=== PATIENT | female | born 1970 ===

== ENCOUNTER 2017-05-20 20:05 | Emergency (ER) | payer OTHER ==
[2017-05-20 20:05] VITALS: PULSE 73
[2017-05-20 20:28] VITALS: BP 130/78; PULSE 91; RESP 16; TEMP 98.4; O2SAT 98
--- NOTE | 2017-05-20 20:54 | C.PDOC ---
History Of Present Illness Patient is a 47 year old female presents to ED with complaints of neck pain since this morning. Patient reports pain is in her right side of neck, shoulder and upper back. 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 Today she went to gym and did some weights and exercises and pain worsened. She did not take any pain medicine, was not sure what she can take. Denies headache, dizziness, numbness or weakness. Time Seen by Provider: 05/20/17 20:33 Chief Complaint (Nursing): ENT Problem History Per: Patient History/Exam Limitations: no limitations Onset/Duration Of Symptoms: Hrs Current Symptoms Are (Timing): Still Present Recent travel outside of the [place]: No Additional History Per: Patient Past Medical History Reviewed: Historical Data, Nursing Documentation, Vital Signs Vital Signs: Last Vital Signs Temp 98.4 F 05/20/17 20:20 Pulse 91 H 05/20/17 20:20 Resp 16 05/20/17 20:20 BP 130/78 05/20/17 20:20 Pulse Ox 98 05/20/17 22:21 - Medical History PMH: Anemia, Atrial Fibrillation, Cardia Arrhythmia, CHF, HTN, Hypothyroidism, Malignancy (thyroid), Mitral Valve Prolapse Surgical History: Other Surgeries: Thyroidectomy, mitral valve replacement - [facility] Procedures PACKED CELL TRANSFUSION (06/28/15) THORACENTESIS (01/07/15) Family History: States: Unknown Family Hx - Social History Hx Tobacco Use: No Hx Alcohol Use: No Hx Substance Use: No - Immunization History Hx Tetanus Toxoid Vaccination: No Hx Influenza Vaccination: Yes Hx Pneumococcal Vaccination: Yes Review Of Systems Except As Marked, All Systems Reviewed And Found Negative. Constitutional: Negative for: Fever, Chills Musculoskeletal: Positive for: Neck Pain, Shoulder Pain (right), Back Pain ( upper) Neurological: Negative for: Weakness, Numbness, Headache, Dizziness Physical Exam - Physical Exam Appears: Non-toxic, No Acute Distress Skin: Normal Color, Warm, Dry Head: Atraumatic, Normacephalic Eye(s): bilateral: Normal Inspection Nose: Normal Oral Mucosa: Moist Neck: Normal ROM, No Midline Cervical Tenderness, Paracervical Tenderness ( right paracervical muscle tenderness), Supple Chest: Symmetrical Cardiovascular: Rhythm Regular Respiratory: Normal Breath Sounds, No Wheezing Back: No Vertebral Tenderness, Muscle Spasm (right trapezius muscle ), Paraspinal Tenderness (right trapezius muscle tender to palpation ) Extremity: Normal ROM, No Tenderness, No Deformity, No Swelling Neurological/Psych: Oriented x3, Normal Speech, Normal Motor, Normal Sensation Gait: Steady ED Course And Treatment O2 Sat by Pulse Oximetry: 98 Medical Decision Making Medical Decision Makin y.o female with upper back, neck and shoulder pain after strenuous work and exercise. Exam shows muscle tenderness. Flexeril PO given with moderate relief. Disposition Counseled Patient/Family Regarding: Need For Followup, Rx Given - Disposition Referrals: Catherine Grove MD [Staff Provider] - Disposition: HOME/ ROUTINE Disposition Time: 21:14 Condition: STABLE Additional Instructions: Vaya a aguila mdico o la clnica en 2-5 castillo sin falta, para mas evaluacin. [place] los medicamentos rose indicado. Volver a la sonia de emergencia en cualquier momento si los sntomas persisten o empeoran. Prescriptions: Cyclobenzaprine [Cyclobenzaprine HCl] 10 mg PO TID #21 tab Instructions: Cervical Strain (DC) Print Language: PERSIAN - POA Present On Arrival: None - Clinical Impression Clinical Impression: Neck muscle strain - PA / ACCOUNT RESOLUTION SPECIALIST / Resident Statement MD/DO has reviewed & agrees with the documentation as recorded. - Scribe Statement The provider has reviewed the documentation as recorded by the Cindiibemanuel Villegas All medical record entries made by the Scribe were at my direction and personally dictated by me. I have reviewed the chart and agree that the record accurately reflects my personal performance of the history, physical exam, medical decision making, and the department course for this patient. I have also personally directed, reviewed, and agree with the discharge instructions and disposition.
== END 2017-05-20 21:15 | disposition home or self-care (01) ==
LOC: C.ER 20:05
DX: S16.1XXA Strain of muscle, fascia and tendon at neck level, initial encounter (principal); X58.XXXA Exposure to other specified factors, initial encounter; Y93.B3 Activity, free weights; Y92.39 Other specified sports and athletic area as the place of occurrence of the external cause

== ENCOUNTER 2017-09-25 13:15 | Emergency (ER) | payer OTHER ==
[2017-09-25 13:15] VITALS: PULSE 73; BMI 35.1
[2017-09-25 13:30] VITALS: TEMP 97.5
[2017-09-25] MEDS ORDERED: DiphenhydrAMINE 50 mg/ml Inj ONE (13:38)
[2017-09-25] MEDS ORDERED: Lactated Ringer's 1,000 ML ONE (13:39)
--- NOTE | 2017-09-25 13:39 | C.PDOC ---
History Of Present Illness 47F c/o diffuse rash, itching, swelling in her arms and hands, and mild sob that started about an hour ago, shortly after eating fish at a restaurant. she has no known allergies and has not experienced a similar reaction before. hx "high blood sugar" and also a "metal valve" replacement 2.5 years ago. Time Seen by Provider: 09/25/17 13:38 Chief Complaint (Nursing): Allergic Reaction Past Medical History Vital Signs: Last Vital Signs Temp 97.5 F L 09/25/17 13:26 Pulse 130 H 09/25/17 13:26 Resp 20 09/25/17 13:26 BP 124/78 09/25/17 13:26 Pulse Ox 97 09/25/17 14:49 - Medical History PMH: Anemia, Atrial Fibrillation, Cardia Arrhythmia, CHF, HTN, Hypothyroidism, Malignancy (thyroid), Mitral Valve Prolapse Denies: Sexually Transmitted Disease Surgical History: - [facility] Procedures PACKED CELL TRANSFUSION (06/28/15) THORACENTESIS (01/07/15) Family History: States: Other Other Family History: nc - Social History Hx Tobacco Use: No Hx Alcohol Use: No Hx Substance Use: No - Immunization History Hx Tetanus Toxoid Vaccination: No Hx Influenza Vaccination: Yes Hx Pneumococcal Vaccination: Yes Review Of Systems Constitutional: Negative for: Fever Cardiovascular: Negative for: Chest Pain Respiratory: Positive for: Shortness of Breath. Negative for: Cough, Hemoptysis , Wheezing Gastrointestinal: Negative for: Nausea, Vomiting, Abdominal Pain Skin: Positive for: Rash Neurological: Negative for: Headache Physical Exam - Physical Exam Skin: Warm, Dry, Rash (diffuse urticaria mainly on back and arms) Head: Atraumatic Eye(s): bilateral: PERRL, EOMI Nose: No Epistaxis Oral Mucosa: Moist Tongue: No Swelling, No Erythema Lips: No Swelling Gingiva: No Swelling Throat: No Erythema, No Drooling, Other (uvula non-edematous and midline) Neck: Normal ROM Cardiovascular: Rhythm Regular Respiratory: No Decreased Breath Sounds, No Accessory Muscle Use, No Rales, No Rhonchi, No Stridor, No Wheezing Neurological/Psych: Oriented x3, Other (no focal deficits) ED Course And Treatment - Laboratory Results Result Diagrams: 09/25/17 14:25 09/25/17 14:25 O2 Sat by Pulse Oximetry: 97 Medical Decision Making Medical Decision Making: ecg- nsr 89, incomplete rbbb, no acute ischemia 1600 pt resting comfortably, reports sob completely resolved. she appears well, no distress. hives improved as well. follow up and return prec advised. Disposition - Disposition Disposition: HOME/ ROUTINE Disposition Time: 16:06 Condition: IMPROVED Forms: [facility] (Kiswahili) - Clinical Impression Clinical Impression: Scombroid fish poisoning
[2017-09-25] MEDS ORDERED: Lactated Ringer's 1,000 ML IV ONE (13:45)
[2017-09-25] MEDS ORDERED: DiphenhydrAMINE 50 mg/ml Inj IVP STA (13:45)
[2017-09-25 14:29] LABS: BASO % 0.4 % (0.0-2.0); EOS # 0.1 K/uL (0.0-0.7); EOS % 0.5 % (0.0-4.0); HEMATOCRIT 55.6 % (34.0-47.0); LYMPH # 4.9 K/uL (1.0-4.3); LYMPH % 42.7 % (20.0-40.0); MEAN PLATELET VOLUME 10.7 fL (7.2-11.7); MONO # 1.3 K/uL (0.0-0.8); MONO % 11.5 % (0.0-10.0); NRBC % 0.3 % (0.0-2.0); WHITE BLOOD COUNT 11.6 K/uL (4.8-10.8)
[2017-09-25 14:36] LABS: INR 3.9
[2017-09-25 14:49] LABS: ALB/GLOB RATIO 1.3 (1.0-2.1); ALKALINE PHOSPHATASE 107 U/L (38-126); ALT/SGPT 167 U/L (9-52); AST/SGOT 93 U/L (14-36); BILIRUBIN,TOTAL 1.4 mg/dL (0.2-1.3); BLOOD UREA NITROGEN 13 mg/dL (7-17); CALCIUM 8.7 mg/dl (8.6-10.4); CARBON DIOXIDE 18 mmol/L (22-30); CHLORIDE 103 mmol/L (98-107); GFR AFRICAN-AMERICAN > 60; GLUCOSE,RANDOM 102 mg/dL (65-105); POTASSIUM 3.7 mmol/L (3.6-5.2); SODIUM 138 mmol/L (132-148)
[2017-09-25 16:33] VITALS: BP 129/85; PULSE 82; RESP 16; O2SAT 98
--- NOTE | 2017-09-28 12:07 | CARD ---
APPROVED REPORT EKG Measurement Heart [id number] <Conclusion> Normal sinus rhythm Possible Left atrial enlargement right bundle branch block Prolonged QT Abnormal ECG
== END 2017-09-25 16:32 | disposition home or self-care (01) ==
LOC: C.ER 13:15
DX: T61.11XA Scombroid fish poisoning, accidental (unintentional), initial encounter (principal); X58.XXXA Exposure to other specified factors, initial encounter; Y92.511 Restaurant or cafe as the place of occurrence of the external cause; I10 Essential (primary) hypertension; I48.91 Unspecified atrial fibrillation
CPT/HCPCS: 80053; 85025; 85610; 96361; 96374; 96375; 99285; J1200; J2930; J7120

== ENCOUNTER 2018-03-19 20:06 | Observation (INO) | payer MEDICAID ==
[2018-03-19 20:06] VITALS: PULSE 73; BMI 35.3
--- NOTE | 2018-03-19 20:42 | C.PDOC ---
History Of Present Illness 47 year old female with a Hx of HTN, diabetes, and valvular heart disease s/p surgery on Coumadin presents to the ER with left chest pain for the past few days. Patient reports the pain as a burning sensation. Patient has never had a stress test done before in the past. Denies fever. Time Seen by Provider: 03/19/18 20:33 Chief Complaint (Nursing): Chest Pain History Per: Patient History/Exam Limitations: no limitations Onset/Duration Of Symptoms: Days Current Symptoms Are (Timing): Still Present Quality: Burning Associated Symptoms: denies: Nausea, Dyspnea, Diaphoresis, Syncope Modifying Factors: None Exacerbating Factors: None Alleviating Factors: None Recent travel outside of the [place]: No Past Medical History Reviewed: Historical Data, Nursing Documentation, Vital Signs Vital Signs: Last Vital Signs Temp 97.9 F 03/20/18 07:40 Pulse 66 03/20/18 07:40 Resp 18 03/20/18 07:40 BP 116/62 03/20/18 07:40 Pulse Ox 97 03/20/18 07:40 - Medical History PMH: Anemia, Atrial Fibrillation, Cardia Arrhythmia, CHF, HTN, Hypothyroidism, Malignancy (thyroid), Mitral Valve Prolapse Surgical History: - [facility] Procedures PACKED CELL TRANSFUSION (06/28/15) THORACENTESIS (01/07/15) Family History: States: Unknown Family Hx - Social History Hx Tobacco Use: No Hx Alcohol Use: No Hx Substance Use: No - Immunization History Hx Tetanus Toxoid Vaccination: No Hx Influenza Vaccination: Yes Hx Pneumococcal Vaccination: Yes Review Of Systems Except As Marked, All Systems Reviewed And Found Negative. Constitutional: Negative for: Fever Cardiovascular: Positive for: Chest Pain Respiratory: Negative for: Cough, Shortness of Breath Gastrointestinal: Negative for: Nausea, Vomiting Physical Exam - Physical Exam Appears: Non-toxic Skin: Normal Color, Warm, Dry Head: Atraumatic, Normacephalic Eye(s): bilateral: Normal Inspection Oral Mucosa: Moist Chest: Symmetrical, No Tenderness Cardiovascular: Rhythm Regular Respiratory: Normal Breath Sounds, No Rales, No Rhonchi, No Wheezing Gastrointestinal/Abdominal: Soft, No Tenderness Neurological/Psych: Oriented x3, Normal Speech ED Course And Treatment - Laboratory Results Result Diagrams: 03/19/18 20:39 03/19/18 20:39 ECG: Interpreted By Me, Viewed By Me ECG Rhythm: Sinus Rhythm, R BBB Interpretation Of ECG: No interval change from previous. Rate From EC O2 Sat by Pulse Oximetry: 99 (Room air) Pulse Ox Interpretation: Normal Medical Decision Making Medical Decision Making: Plan: * Blood work * CXR * Aspirin atypical pain, but onsent less than 1 hour. needs serial trop Disposition - Disposition Disposition: HOSPITALIZED Disposition Time: 12:00 Condition: STABLE - Clinical Impression Clinical Impression: Chest pain - Scribe Statement The provider has reviewed the documentation as recorded by the Scribe Raz Machuca All medical record entries made by the Scribe were at my direction and personally dictated by me. I have reviewed the chart and agree that the record accurately reflects my personal performance of the history, physical exam, medical decision making, and the department course for this patient. I have also personally directed, reviewed, and agree with the discharge instructions and disposition. Decision To Admit - Pt Status Changed To: Hospital Disposition Of: Observation - . Bed Request Type: Telemetry Admitting Physician: Luis Fernando Chambers Patient Diagnosis: Chest pain
[2018-03-19 20:43] LABS: BASO # 0.1 K/uL (0.0-0.2); BASO % 1.2 % (0.0-2.0); EOS # 0.2 K/uL (0.0-0.7); EOS % 2.3 % (0.0-4.0); HEMOGLOBIN 14.7 g/dL (11.0-16.0); LYMPH # 4.1 K/uL (1.0-4.3); LYMPH % 46.4 % (20.0-40.0); MEAN CELL VOLUME 89.1 fL (81.0-99.0); MEAN CORPUSCULAR HEMOGLOBIN 30.2 pg (27.0-31.0); MEAN CORPUSCULAR HGB CONC 33.9 g/dL (33.0-37.0); MEAN PLATELET VOLUME 9.8 fL (7.2-11.7); MONO # 0.6 K/uL (0.0-0.8); MONO % 7.3 % (0.0-10.0); NEUT # 3.7 K/uL (1.8-7.0); NEUT % 42.8 % (50.0-75.0); NRBC % 0.1 % (0.0-2.0); RBC 4.87 Mil/uL (3.80-5.20); RED CELL DISTRIBUTION WIDTH 13.8 % (11.5-14.5); WHITE BLOOD COUNT 8.8 K/uL (4.8-10.8)
[2018-03-19 20:50] LABS: INR 2.7; PROTHROMBIN TIME 29.6 SECONDS (9.7-12.2)
[2018-03-19 21:03] LABS: ALB/GLOB RATIO 1.1 (1.0-2.1); ALBUMIN 4.4 g/dL (3.5-5.0); ALT/SGPT 100 U/L (9-52); AST/SGOT 57 U/L (14-36); BLOOD UREA NITROGEN 20 mg/dL (7-17); GFR AFRICAN-AMERICAN > 60; GFR NON-AFRICAN AMERICAN > 60
[2018-03-19 21:05] LABS: CK-MB 1.02 ng/mL (0.0-3.38)
[2018-03-19 21:29] LABS: SQUAMOUS EPITHIAL 2 /hpf (0-5); URINE BACTERIA OCC (<OCC); URINE BILIRUBIN NEGATIVE (NEGATIVE); URINE BLOOD NEGATIVE (NEGATIVE); URINE CLARITY Clear (Clear); URINE COLOR Yellow (YELLOW); URINE GLUCOSE (UA) NORMAL (Normal); URINE LEUKOCYTE ESTERASE NEG Leu/uL (Negative); URINE PROTEIN NEGATIVE (NEGATIVE); URINE UROBILINOGEN NORMAL mg/dL (0.2-1.0)
[2018-03-19 21:30] LABS: HCG,QUALITATIVE URINE NEGATIVE (NEGATIVE)
--- NOTE | 2018-03-19 22:05 | CP.PCM.HP ---
<Meena Mensah - Last Filed: 03/19/18 23:15> History of Present Illness - History of Present Illness History of Present Illness: CC: chest pain for two days HPI: 47 year old female with a PMH: HTN, diabetes, and valvular heart disease s/p valvular replacement surgery (mitral and tricuspid) on Coumadin presents to the ER with left chest pain for the past two days. Patient states the pain is on and off and last for minutes usually but the duration is never the same. Patient has never had a stress test done before in the past. Patient states this is the first time she's experienced this pain before. The previous pain she had experienced led her to have valve replacement. Patient states this is different. Patient states she was given aspirin in ED and per EMR. Patient states she still has a little chest pain now but feels better. Patient denies shortness of breath, fever, chills, coughing, dizziness, nausea, vomiting, diarrhea, constipation, numbness, and tingling of lower extremities. PMH: cholesterol, liver problem (unspecified. follows at [facility]) surgery: thyroidectomy, , valve replacement x 2 (mitral and tricuspid "metal" valves) Social: no smoking, drinking etoh, illicit drugs PMD: [facility] allergies: fish Present on Admission - Present on Admission Any Indicators Present on Admission: No History of DVT/PE: No History of Uncontrolled Diabetes: No Urinary Catheter: No Decubitus Ulcer Present: No Review of Systems - Review of Systems All systems: reviewed and no additional remarkable complaints except - Cardiovascular Cardiovascular: absent: Chest Pain at Rest, Irregular Heart Rhythm, Palpitations , Pedal Edema - Respiratory Respiratory: absent: Cough, Dyspnea, Hemoptysis, Dyspnea on Exertion, Chest Congestion, Change in Mucous Color Past Patient History - Infectious Disease Hx of Infectious Diseases: None - Past Medical History & Family History Past Medical History?: Yes - Past Social History Smoking Status: Never Smoked Alcohol: None Home Situation {Lives}: With Family - CARDIAC Hx Atrial Fibrillation: Yes Hx Cardia Arrhythmia: Yes Hx Congestive Heart Failure: Yes Hx Hypertension: Yes Hx Mitral Valve Prolapse: Yes - PULMONARY Hx Respiratory Disorders: No - NEUROLOGICAL Hx Neurological Disorder: No - HEENT Hx HEENT Problems: No - RENAL Hx Chronic Kidney Disease: No - ENDOCRINE/METABOLIC Hx Hypothyroidism: Yes - HEMATOLOGICAL/ONCOLOGICAL Hx Anemia: Yes - INTEGUMENTARY Hx Dermatological Problems: No - MUSCULOSKELETAL/RHEUMATOLOGICAL Hx Musculoskeletal Disorders: No Hx Falls: No - GASTROINTESTINAL Hx Gastrointestinal Disorders: No - GENITOURINARY/GYNECOLOGICAL Hx Sexually Transmitted Disorders: No - PSYCHIATRIC Hx Substance Use: No - SURGICAL HISTORY Hx Surgeries: Yes Hx Section: Yes (x1) Hx Open Heart Surgery: Yes Hx Thyroidectomy: Yes (" 1/2 was removed") Hx Valve Replacement: Yes (mitral valve) Other/Comment: thoracentesis 01/07/15 - ANESTHESIA Hx Anesthesia: Yes Hx Anesthesia Reactions: No Hx Malignant Hyperthermia: No Meds Allergies/Adverse Reactions: Allergies Allergy/AdvReac Type Severity Reaction Status Date / Time FISH Allergy Verified 09/28/17 08:42 Physical Exam - Constitutional Appears: Non-toxic, No Acute Distress - Head Exam Head Exam: ATRAUMATIC, NORMAL INSPECTION, NORMOCEPHALIC - Eye Exam Eye Exam: EOMI, Normal appearance Pupil Exam: NORMAL ACCOMODATION - ENT Exam ENT Exam: Mucous Membranes Moist - Neck Exam Neck exam: Positive for: Full Rom. Negative for: Lymphadenopathy - Respiratory Exam Respiratory Exam: Clear to Auscultation Bilateral, NORMAL BREATHING PATTERN. absent: Accessory Muscle Use, Chest Wall Tenderness, Decreased Breath Sounds - Cardiovascular Exam Cardiovascular Exam: REGULAR RHYTHM, +S1, +S2. absent: Bradycardia, Tachycardia - GI/Abdominal Exam GI & Abdominal Exam: Normal Bowel Sounds, Soft. absent: Tenderness - Extremities Exam Extremities exam: Positive for: full ROM, normal inspection. Negative for: pedal edema - Neurological Exam Neurological exam: Alert, CN II-XII Intact, Oriented x3 - Skin Skin Exam: Dry, Intact, Normal Color, Warm Results - Vital Signs Recent Vital Signs: Last Vital Signs Temp 98.2 F 03/19/18 20:31 Pulse 78 03/19/18 20:31 Resp 16 03/19/18 20:31 BP 131/68 03/19/18 20:31 Pulse Ox 99 03/19/18 20:45 - Labs Result Diagrams: 03/19/18 20:39 03/19/18 20:39 Labs: Laboratory Results - last 24 hr 03/19/18 03/19/18 03/19/18 20:39 20:39 20:39 WBC 8.8 D RBC 4.87 Hgb 14.7 Hct 43.3 MCV 89.1 MCH 30.2 MCHC 33.9 RDW 13.8 Plt Count 246 MPV 9.8 Neut % (Auto) 42.8 L Lymph % (Auto) 46.4 H [place] % (Auto) 7.3 Eos % (Auto) 2.3 Baso % (Auto) 1.2 Neut # (Auto) 3.7 Lymph # (Auto) 4.1 [place] # (Auto) 0.6 Eos # (Auto) 0.2 Baso # (Auto) 0.1 PT 29.6 H* INR 2.7 APTT 53 H Sodium 143 Potassium 4.7 Chloride 104 Carbon Dioxide 28 Anion Gap 15 BUN 20 H Creatinine 0.7 Est GFR ( Amer) > 60 Est GFR (Non-Af Amer) > 60 Random Glucose 98 Calcium 10.0 Total Bilirubin 1.4 H AST 57 H ALT 100 H D Alkaline Phosphatase 119 Total Creatine Kinase 115 CK-MB (Mass) 1.02 Troponin I < 0.0120 Total Protein 8.3 Albumin 4.4 Globulin 3.9 Albumin/Globulin Ratio 1.1 Urine Color Urine Clarity Urine pH Ur Specific [place] Urine Protein Urine Glucose (UA) Urine Ketones Urine Blood Urine Nitrate Urine Bilirubin Urine Urobilinogen Ur Leukocyte Esterase Urine WBC (Auto) Urine RBC (Auto) Ur Squamous Epith Cells Ur Transition Epith Cell Urine Bacteria Urine HCG, Qual 03/19/18 21:21 WBC RBC Hgb Hct MCV MCH MCHC RDW Plt Count MPV Neut % (Auto) Lymph % (Auto) [place] % (Auto) Eos % (Auto) Baso % (Auto) Neut # (Auto) Lymph # (Auto) [place] # (Auto) Eos # (Auto) Baso # (Auto) PT INR APTT Sodium Potassium Chloride Carbon Dioxide Anion Gap BUN Creatinine Est GFR ( Amer) Est GFR (Non-Af Amer) Random Glucose Calcium Total Bilirubin AST ALT Alkaline Phosphatase Total Creatine Kinase CK-MB (Mass) Troponin I Total Protein Albumin Globulin Albumin/Globulin Ratio Urine Color Yellow Urine Clarity Clear Urine pH 5.0 Ur Specific [place] 1.020 Urine Protein Negative Urine Glucose (UA) Normal Urine Ketones Negative Urine Blood Negative Urine Nitrate Negative Urine Bilirubin Negative Urine Urobilinogen Normal Ur Leukocyte Esterase Neg Urine WBC (Auto) 2 Urine RBC (Auto) 1 Ur Squamous Epith Cells 2 Ur Transition Epith Cell < 1 Urine Bacteria Occ H Urine HCG, Qual Negative Assessment & Plan - Assessment and Plan (Free Text) Assessment: ACS r/o EKG RBBB troponin negative x 1 f/u TRISTIAN x 2 ASA 81 mg POQD hx HTN Zestril 5mgPOQD valvular disease s/p mitral and tricuspid replacement f/u INR: 2.7, therapeutic on Coumadin 7mg po qd at home 1800 Impaired glucose tolerance last hgb A1c 6.1% sliding scale accucheck q6h Transamnitis 57/100 t bili 1.4 f/u Abdominal US (already done from clinic order) Patient said she had it done Prophylaxis Pepcid 20mg PO QD SCD discussed with Dr. Trish Mensah DO PGY1 - Date & Time Date: 03/19/18 Time: 22:13 <Luis Fernando Chambers - Last Filed: 03/20/18 06:27> Results - Vital Signs Recent Vital Signs: Last Vital Signs Temp 97.7 F 03/20/18 04:40 Pulse 60 03/20/18 04:40 Resp 20 03/20/18 04:40 BP 95/59 L 03/20/18 04:40 Pulse Ox 96 03/20/18 04:40 - Labs Result Diagrams: 03/19/18 20:39 03/19/18 20:39 Labs: Laboratory Results - last 24 hr 03/19/18 03/19/18 03/19/18 20:39 20:39 20:39 WBC 8.8 D RBC 4.87 Hgb 14.7 Hct 43.3 MCV 89.1 MCH 30.2 MCHC 33.9 RDW 13.8 Plt Count 246 MPV 9.8 Neut % (Auto) 42.8 L Lymph % (Auto) 46.4 H [place] % (Auto) 7.3 Eos % (Auto) 2.3 Baso % (Auto) 1.2 Neut # (Auto) 3.7 Lymph # (Auto) 4.1 [place] # (Auto) 0.6 Eos # (Auto) 0.2 Baso # (Auto) 0.1 PT 29.6 H* INR 2.7 APTT 53 H Sodium 143 Potassium 4.7 Chloride 104 Carbon Dioxide 28 Anion Gap 15 BUN 20 H Creatinine 0.7 Est GFR ( Amer) > 60 Est GFR (Non-Af Amer) > 60 Random Glucose 98 Calcium 10.0 Total Bilirubin 1.4 H AST 57 H ALT 100 H D Alkaline Phosphatase 119 Total Creatine Kinase 115 CK-MB (Mass) 1.02 Troponin I < 0.0120 Total Protein 8.3 Albumin 4.4 Globulin 3.9 Albumin/Globulin Ratio 1.1 Urine Color Urine Clarity Urine pH Ur Specific [place] Urine Protein Urine Glucose (UA) Urine Ketones Urine Blood Urine Nitrate Urine Bilirubin Urine Urobilinogen Ur Leukocyte Esterase Urine WBC (Auto) Urine RBC (Auto) Ur Squamous Epith Cells Ur Transition Epith Cell Urine Bacteria Urine HCG, Qual 03/19/18 03/20/18 21:21 00:28 WBC RBC Hgb Hct MCV MCH MCHC RDW Plt Count MPV Neut % (Auto) Lymph % (Auto) [place] % (Auto) Eos % (Auto) Baso % (Auto) Neut # (Auto) Lymph # (Auto) [place] # (Auto) Eos # (Auto) Baso # (Auto) PT INR APTT Sodium Potassium Chloride Carbon Dioxide Anion Gap BUN Creatinine Est GFR ( Amer) Est GFR (Non-Af Amer) Random Glucose Calcium Total Bilirubin AST ALT Alkaline Phosphatase Total Creatine Kinase 112 CK-MB (Mass) 1.01 Troponin I < 0.0120 Total Protein Albumin Globulin Albumin/Globulin Ratio Urine Color Yellow Urine Clarity Clear Urine pH 5.0 Ur Specific [place] 1.020 Urine Protein Negative Urine Glucose (UA) Normal Urine Ketones Negative Urine Blood Negative Urine Nitrate Negative Urine Bilirubin Negative Urine Urobilinogen Normal Ur Leukocyte Esterase Neg Urine WBC (Auto) 2 Urine RBC (Auto) 1 Ur Squamous Epith Cells 2 Ur Transition Epith Cell < 1 Urine Bacteria Occ H Urine HCG, Qual Negative Assessment & Plan - Date & Time Date: 03/20/18 (I have seen and examined the patient. I agree with the findings and plan of care as documented by Dr. Mensah. Patient with chest pain. Aspirin and Statin. ROMIx3 with EKG. 2D Echo. History of valvular heart disease. Continue coumadin. INR within therapeutic range. Also with impaired glucose tolerance. NISS and accuchecks. Monitor for acute changes.) Time: 06:26 Attending/Attestation - Attestation I have personally seen and examined this patient.: Yes I have fully participated in the care of the patient.: Yes I have reviewed all pertinent clinical information: Yes
[2018-03-19] MEDS ORDERED: Glucagon Recombinant 1 mg Inj IM PRN (23:16)
[2018-03-19] MEDS ORDERED: Dextrose 50% SYRINGE Inj (50 ml) IV PRN (23:16)
[2018-03-20 01:05] LABS: CK-MB 1.01 ng/mL (0.0-3.38)
[2018-03-20 06:58] LABS: INR 2.8
[2018-03-20 07:06] LABS: PROTHROMBIN TIME 31.2 SECONDS (9.7-12.2)
[2018-03-20 07:21] LABS: CK-MB 0.85 ng/mL (0.0-3.38)
[2018-03-20] MEDS: (Novolin R) Insulin Human Regular 100 units/ml vial SC SCH ×2 (08:00→14:00)
--- NOTE | 2018-03-20 09:16 | RAD ---
HISTORY: CHEST PAIN COMPARISON: Portable chest 01/16/2016. FINDINGS: LUNGS: No active pulmonary disease. PLEURA: No significant pleural effusion identified, no pneumothorax apparent. CARDIOVASCULAR: Sternotomy wires again appreciate as well as prosthetic cardiac valve. No pulmonary vascular derangement appreciable. OSSEOUS STRUCTURES: No significant abnormalities. VISUALIZED UPPER ABDOMEN: Normal. OTHER FINDINGS: None. IMPRESSION: No interval acute cardiopulmonary disease appreciated. Prosthetic cardiac valve again evident.
[2018-03-20 09:29] VITALS: BP 116/62; PULSE 66; RESP 18; TEMP 97.9
--- NOTE | 2018-03-20 14:41 | CARD ---
APPROVED REPORT EXAM: Two-dimensional and M-mode echocardiogram with Doppler and color Doppler. Other Information Quality : GoodRhythm : INDICATION Dyspnea Atrial Fibrillation Chest Pain RISK FACTORS Hypertension 2D DIMENSIONS IVSd1.2 (0.7-1.1cm)LVDd3.5 (3.9-5.9cm) PWd1.2 (0.7-1.1cm)LVDs2.3 (2.5-4.0cm) FS (%) 34.2 %LVEF (%)64.2 (>50%) M-Mode DIMENSIONS Left Atrium (MM)4.82 (2.5-4.0cm)Aortic Root2.92 (2.2-3.7cm) Aortic Cusp Exc.1.90 (1.5-2.0cm) Aortic Valve AI P 1/2 [id number] Mitral Valve MV E Yylbxvpv536.4cm/sMV E Peak Gr.7mmHgMV A Cyaboost225.3cm/s MV E Mean Gr.4mmHgMV [id number]/A ratio1.1 MVA (PHT)1.88cm2 TDI E/Lateral E'0.0E/Medial E'0.0 Tricuspid Valve TR Peak Ntazoiav131ya/sTR Peak Gr.89rcJdZOPW56mpZe LEFT VENTRICLE The left ventricle is normal size. There is normal left ventricular wall thickness. The left ventricular function is normal. The left ventricular ejection fraction is within the normal range. No regional wall motion abnormalities noted. No left ventricle thrombus noted on this study. There is no ventricular septal defect visualized. There is no left ventricular aneurysm. There is no mass noted in the left ventricle. RIGHT VENTRICLE The right ventricle is normal size. There is normal right ventricular wall thickness. The right ventricular systolic function is normal. ATRIA The left atrium is moderately dilated. The right atrium size is normal. The interatrial septum is intact with no evidence for an atrial septal defect. AORTIC VALVE The aortic valve is normal in structure and function. There is moderate aortic regurgitation. There is no aortic valvular stenosis. There is no aortic valvular vegetation. MITRAL VALVE ? Mitral valve prosthesis. Not well visualized due to heavy calcification of the mitral annulus. There is no evidence of mitral valve prolapse. There is no mitral valve stenosis. There is no mitral valve regurgitation noted. TRICUSPID VALVE The tricuspid valve is normal in structure and function. Mild to moderate tricuspid regurg. Systolic pulmonary pressure is 34 mmHg There is no tricuspid valve prolapse or vegetation. There is no tricuspid valve stenosis. PULMONIC VALVE The pulmonary valve is normal in structure and function. There is no pulmonic valvular regurgitation. There is no pulmonic valvular stenosis. GREAT VESSELS The aortic root is normal in size. The ascending aorta is normal in size. The pulmonary artery is normal. The IVC is normal in size and collapses >50% with inspiration. PERICARDIAL EFFUSION The pericardium appears normal. There is no pleural effusion. <Conclusion> The left ventricular function is normal. The left ventricular ejection fraction is within the normal range. No regional wall motion abnormalities noted. There is moderate aortic regurgitation. ? Mitral valve prosthesis. Not well visualized due to heavy calcification of the mitral annulus. Mild to moderate tricuspid regurg. Systolic pulmonary pressure is 34 mmHg The left atrium is moderately dilated.
--- NOTE | 2018-03-20 14:55 | CP.PCM.DIS ---
Provider - Provider Date of Admission: 03/19/18 21:11 Attending physician: Luis Fernando Chambers MD Consults: None Time Spent in preparation of Discharge (in minutes): 45 Hospital Course - Lab Results Lab Results: Most Recent Lab Values WBC 8.8 K/uL (4.8-10.8) D 03/19/18 20:39 RBC 4.87 Mil/uL (3.80-5.20) 03/19/18 20:39 Hgb 14.7 g/dL (11.0-16.0) 03/19/18 20:39 Hct 43.3 % (34.0-47.0) 03/19/18 20:39 MCV 89.1 fL (81.0-99.0) 03/19/18 20:39 MCH 30.2 pg (27.0-31.0) 03/19/18 20:39 MCHC 33.9 g/dL (33.0-37.0) 03/19/18 20:39 RDW 13.8 % (11.5-14.5) 03/19/18 20:39 Plt Count 246 K/uL (130-400) 03/19/18 20:39 MPV 9.8 fL (7.2-11.7) 03/19/18 20:39 Neut % (Auto) 42.8 % (50.0-75.0) L 03/19/18 20:39 Lymph % (Auto) 46.4 % (20.0-40.0) H 03/19/18 20:39 Bonner % (Auto) 7.3 % (0.0-10.0) 03/19/18 20:39 Eos % (Auto) 2.3 % (0.0-4.0) 03/19/18 20:39 Baso % (Auto) 1.2 % (0.0-2.0) 03/19/18 20:39 Neut # (Auto) 3.7 K/uL (1.8-7.0) 03/19/18 20:39 Lymph # (Auto) 4.1 K/uL (1.0-4.3) 03/19/18 20:39 Bonner # (Auto) 0.6 K/uL (0.0-0.8) 03/19/18 20:39 Eos # (Auto) 0.2 K/uL (0.0-0.7) 03/19/18 20:39 Baso # (Auto) 0.1 K/uL (0.0-0.2) 03/19/18 20:39 PT 31.2 SECONDS (9.7-12.2) H* 03/20/18 06:45 INR 2.8 03/20/18 06:45 APTT 53 SECONDS (21-34) H 03/19/18 20:39 Sodium 143 mmol/L (132-148) 03/19/18 20:39 Potassium 4.7 mmol/L (3.6-5.2) 03/19/18 20:39 Chloride 104 mmol/L (98-107) 03/19/18 20:39 Carbon Dioxide 28 mmol/L (22-30) 03/19/18 20:39 Anion Gap 15 (10-20) 03/19/18 20:39 BUN 20 mg/dL (7-17) H 03/19/18 20:39 Creatinine 0.7 mg/dL (0.7-1.2) 03/19/18 20:39 Est GFR ( Amer) > 60 03/19/18 20:39 Est GFR (Non-Af Amer) > 60 03/19/18 20:39 POC Glucose (mg/dL) 89 mg/dL (65-110) 03/20/18 11:37 Random Glucose 98 mg/dL (65-105) 03/19/18 20:39 Calcium 10.0 mg/dl (8.6-10.4) 03/19/18 20:39 Total Bilirubin 1.4 mg/dL (0.2-1.3) H 03/19/18 20:39 AST 57 U/L (14-36) H 03/19/18 20:39 ALT 100 U/L (9-52) H D 03/19/18 20:39 Alkaline Phosphatase 119 U/L (38-126) 03/19/18 20:39 Total Creatine Kinase 80 U/L (30-135) 03/20/18 06:45 CK-MB (Mass) 0.85 ng/mL (0.0-3.38) 03/20/18 06:45 Troponin I < 0.0120 ng/mL (0.00-0.120) 03/20/18 06:45 Total Protein 8.3 g/dL (6.3-8.3) 03/19/18 20:39 Albumin 4.4 g/dL (3.5-5.0) 03/19/18 20:39 Globulin 3.9 gm/dL (2.2-3.9) 03/19/18 20:39 Albumin/Globulin Ratio 1.1 (1.0-2.1) 03/19/18 20:39 Urine Color Yellow (YELLOW) 03/19/18 21:21 Urine Clarity Clear (Clear) 03/19/18 21:21 Urine pH 5.0 (5.0-8.0) 03/19/18 21:21 Ur Specific [place] 1.020 (1.003-1.030) 03/19/18 21:21 Urine Protein Negative mg/dL (NEGATIVE) 03/19/18 21:21 Urine Glucose (UA) Normal mg/dL (Normal) 03/19/18 21:21 Urine Ketones Negative mg/dL (NEGATIVE) 03/19/18 21:21 Urine Blood Negative (NEGATIVE) 03/19/18 21:21 Urine Nitrate Negative (NEGATIVE) 03/19/18 21:21 Urine Bilirubin Negative (NEGATIVE) 03/19/18 21:21 Urine Urobilinogen Normal mg/dL (0.2-1.0) 03/19/18 21:21 Ur Leukocyte Esterase Neg Moni/uL (Negative) 03/19/18 21:21 Urine WBC (Auto) 2 /hpf (0-5) 03/19/18 21:21 Urine RBC (Auto) 1 /hpf (0-3) 03/19/18 21:21 Ur Squamous Epith Cells 2 /hpf (0-5) 03/19/18 21:21 Ur Transition Epith Cell < 1 /hpf (0-3) 03/19/18 21:21 Urine Bacteria Occ (<OCC) H 03/19/18 21:21 Urine HCG, Qual Negative (NEGATIVE) 03/19/18 21:21 - Hospital Course Hospital Course: Attending: Dr. Salinas Consults: none Stable for dc Complications: none Procedures: none Discharge dx: 1. Chest pain, r/o acs 2. Valvular sx 3. HLD 4. HTN HPI: see h/p Labs: see lab data section Hospital course: 1. Chest pain, ACS rule out -daily asa -trops negative x 3 -EKG Right bundle, unchanged -echo shows normal LV function hx HTN -cont lisinopril hx of valve replacement -continue warfarin 7 mg daily -INR is therapeutic Impaired glucose tolerance -last hgb A1c 6.1% -sliding scale -accucheck q6h Transaminitis -trend labs -monitor for now GI/DVT ppx -SCDS -pepcid Discharge rx: 1. asa 81 daily 2. lisinopril daily 3. warfarin 7 mg daily 4. metformin BID Discharge instructions 1. Please return if condition worsens 2. Please follow up with PMD - Date & Time of H&P Date of H&P: 03/19/18 Time of H&P: 22:02 Discharge Exam - Head Exam Head Exam: ATRAUMATIC, NORMAL INSPECTION, NORMOCEPHALIC - Eye Exam Eye Exam: EOMI - ENT Exam ENT Exam: Mucous Membranes Moist - Neck Exam Neck exam: Full Rom, Normal Inspection - Respiratory Exam Respiratory Exam: NORMAL BREATHING PATTERN, UNREMARKABLE - Cardiovascular Exam Cardiovascular Exam: +S1, +S2 - GI/Abdominal Exam GI & Abdominal Exam: Normal Bowel Sounds - Extremities Exam Extremities exam: full ROM, normal inspection - Neurological Exam Neurological exam: Alert, Oriented x3 - Psychiatric Exam Psychiatric exam: Normal Affect, Normal Mood - Skin Skin Exam: Dry, Intact, Normal Color, Warm Discharge Plan - Follow Up Plan Condition: STABLE Disposition: HOME/ ROUTINE
[2018-03-22 08:46] VITALS: O2SAT 99
--- NOTE | 2018-03-22 12:12 | CARD ---
APPROVED REPORT EKG Measurement Heart [id number] <Conclusion> Normal sinus rhythm Right bundle branch block Abnormal ECG
--- NOTE | 2018-03-22 12:12 | CARD ---
APPROVED REPORT EKG Measurement Heart [id number] <Conclusion> Normal sinus rhythm Right bundle branch block Cannot rule out Inferior infarct, age undetermined Abnormal ECG
== END 2018-03-20 16:00 | disposition home or self-care (01) ==
LOC: C.ER 20:06 → C.9E 21:11 → C.6T 22:25
PROVIDERS: ADMIT Family Medicine; ATTEND Family Medicine
DX: R07.89 Other chest pain (principal); I11.0 Hypertensive heart disease with heart failure; I50.9 Heart failure, unspecified; I48.91 Unspecified atrial fibrillation; I45.10 Unspecified right bundle-branch block; I34.1 Nonrheumatic mitral (valve) prolapse; E89.0 Postprocedural hypothyroidism; E78.5 Hyperlipidemia, unspecified; E11.9 Type 2 diabetes mellitus without complications; Z95.2 Presence of prosthetic heart valve
CPT/HCPCS: 36415; 71045; 80053; 81001; 82948; 84484; 84703; 85025; 85610; 85730; 93306; 99285; G0378

== ENCOUNTER 2018-08-26 20:45 | Emergency (ER) | payer MEDICAID ==
[2018-08-26 20:46] VITALS: PULSE 73; BMI 35.3
[2018-08-26 20:59] VITALS: BP 126/79; PULSE 66; RESP 20; TEMP 97.6; O2SAT 98
[2018-08-26 21:41] LABS: PROTHROMBIN TIME 59.4 SECONDS (9.7-12.2)
--- NOTE | 2018-08-26 21:52 | C.PDOC ---
History Of Present Illness 48 y/o female presents to the ER complaining of discoloration to the dorsum and volar surface of right wrist. Patient states that she has been taking Coumadin alternating between 6 mg and 7 mg s/p cardiac valve replacement. Denies having direct trauma, falls, and injuries. Time Seen by Provider: 08/26/18 21:02 Chief Complaint (Nursing): Abnormal Skin Integrity History Per: Patient History/Exam Limitations: no limitations Onset/Duration Of Symptoms: Days Current Symptoms Are (Timing): Still Present Severity: Moderate Past Medical History Reviewed: Historical Data, Nursing Documentation, Vital Signs Vital Signs: Last Vital Signs Temp 97.6 F 08/26/18 20:56 Pulse 66 08/26/18 20:56 Resp 20 08/26/18 20:56 BP 126/79 08/26/18 20:56 Pulse Ox 98 08/26/18 20:56 - Medical History PMH: Anemia, Atrial Fibrillation, Cardia Arrhythmia, CHF, HTN, Hypothyroidism, Malignancy (thyroid), Mitral Valve Prolapse Denies: Chronic Kidney Disease, Sexually Transmitted Disease Surgical History: - [facility] Procedures PACKED CELL TRANSFUSION (06/28/15) THORACENTESIS (01/07/15) Family History: States: No Known Family Hx - Social History Hx Tobacco Use: No Hx Alcohol Use: No Hx Substance Use: No - Immunization History Hx Tetanus Toxoid Vaccination: No Hx Influenza Vaccination: Yes Hx Pneumococcal Vaccination: Yes Review Of Systems Except As Marked, All Systems Reviewed And Found Negative. Skin: Positive for: Other (discoloration to right wrist) Physical Exam - Physical Exam Appears: Non-toxic, No Acute Distress Skin: Warm, Dry, Ecchymosis (ecchymosis to volar and dorsal aspect of right wri st) Head: Atraumatic, Normacephalic Eye(s): bilateral: Normal Inspection Nose: Normal Oral Mucosa: Moist Neck: Supple Chest: Symmetrical Extremity: Normal ROM, No Tenderness, No Swelling Neurological/Psych: Oriented x3, Normal Speech ED Course And Treatment O2 Sat by Pulse Oximetry: 98 (RA) Pulse Ox Interpretation: Normal Progress Note: Labs ordered. Disposition - Disposition Disposition: HOME/ ROUTINE Disposition Time: 22:34 Condition: STABLE Additional Instructions: Follow up with your PMD/clinic, don't take warfarin tonight and tomorrow. Check INR level in 2 days. Return to ED if feel worse. Instructions: Warfarin, Vitamin K Diet Forms: [facility] (Uruguayan) - Clinical Impression Clinical Impression: Warfarin-induced coagulopathy - PA / BUSINESS ADMINISTRATOR / Resident Statement MD/DO has reviewed & agrees with the documentation as recorded. - Scribe Statement The provider has reviewed the documentation as recorded by the Scribe Shea Menard Provider Attestation All medical record entries made by the Cindiibe were at my direction and personally dictated by me. I have reviewed the chart and agree that the record accurately reflects my personal performance of the history, physical exam, me dical decision making, and the department course for this patient. I have also personally directed, reviewed, and agree with the discharge instructions and disposition.
[2018-08-26 21:58] LABS: INR 5.4
== END 2018-08-26 22:39 | disposition home or self-care (01) ==
LOC: C.ER 20:45
DX: D68.32 Hemorrhagic disorder due to extrinsic circulating anticoagulants (principal); T45.515A Adverse effect of anticoagulants, initial encounter; Y92.89 Other specified places as the place of occurrence of the external cause

== ENCOUNTER 2018-08-28 06:59 | Emergency (ER) | payer MEDICAID ==
[2018-08-28 07:01] VITALS: PULSE 73; BMI 35.3
[2018-08-28 07:16] VITALS: BP 117/68; PULSE 69; TEMP 98.6; O2SAT 99
[2018-08-28 07:53] LABS: PROTHROMBIN TIME 39.1 SECONDS (9.7-12.2)
[2018-08-28 08:01] LABS: INR 3.6
--- NOTE | 2018-08-28 08:05 | C.PDOC ---
History Of Present Illness 48 year old female presents to ED referred to by clinic due to her INR being elevated at 5.4 during visit on 07/27/2018. Patient reports having a bruise on the right wrist at the time that was spontaneous. Patient reports stopping her Coumadin medication due to history of open heart surgery and valve repair. Patient offers no other medical complaints at this time. Time Seen by Provider: 08/28/18 07:19 Chief Complaint (Nursing): Medical Clearance History Per: Patient History/Exam Limitations: no limitations Onset/Duration Of Symptoms: Days Current Symptoms Are (Timing): Still Present Past Medical History Reviewed: Historical Data, Nursing Documentation, Vital Signs Vital Signs: Last Vital Signs Temp 98.6 F 08/28/18 07:14 Pulse 69 08/28/18 07:14 Resp 19 08/28/18 07:14 BP 117/68 08/28/18 07:14 Pulse Ox 99 08/28/18 07:14 - Medical History PMH: Anemia, Atrial Fibrillation, Cardia Arrhythmia, CHF, HTN, Hypothyroidism, Malignancy (thyroid), Mitral Valve Prolapse Denies: Chronic Kidney Disease, Sexually Transmitted Disease Surgical History: - [facility] Procedures PACKED CELL TRANSFUSION (06/28/15) THORACENTESIS (01/07/15) Family History: States: No Known Family Hx - Social History Hx Tobacco Use: No Hx Alcohol Use: No Hx Substance Use: No - Immunization History Hx Tetanus Toxoid Vaccination: No Hx Influenza Vaccination: Yes Hx Pneumococcal Vaccination: Yes Review Of Systems Except As Marked, All Systems Reviewed And Found Negative. Constitutional: Negative for: Fever, Chills Cardiovascular: Negative for: Chest Pain Respiratory: Negative for: Cough, Shortness of Breath Gastrointestinal: Negative for: Nausea, Vomiting, Diarrhea Skin: Positive for: Bruising (Small bruise on right wrist.) Neurological: Negative for: Weakness, Numbness Physical Exam - Physical Exam Appears: Non-toxic, No Acute Distress Skin: Warm, Dry, Ecchymosis (Small bruise to right ventral wrist. Bruise is resolving with no pain to wrist.) Head: Atraumatic, Normacephalic Eye(s): bilateral: PERRL, EOMI Oral Mucosa: Moist Neck: Supple Chest: Symmetrical, No Deformity Cardiovascular: Rhythm Regular Respiratory: Normal Breath Sounds, No Rales, No Rhonchi, No Wheezing Gastrointestinal/Abdominal: Soft, No Tenderness Neurological/Psych: Oriented x3 ED Course And Treatment - Laboratory Results Lab Interpretation: Abnormal (INR 3.6 (theraputic for CABG/valve repair is 2-3)) O2 Sat by Pulse Oximetry: 99 (RA) Pulse Ox Interpretation: Normal Medical Decision Making Medical Decision Making: well corrected INR continue normal routine for coumadin Disposition Doctor Will See Patient In The: Office Counseled Patient/Family Regarding: Studies Performed, Diagnosis - Disposition Referrals: Catherine Grove MD [Staff Provider] - Disposition: HOME/ ROUTINE Disposition Time: 08:04 Condition: GOOD Additional Instructions: INR 3.6 (theraputico es 2-3) Sigue aguila regimen normal de Coumadin Instructions: Anti-Clotting Medicines: Direct Oral Anticoagulants, Anti- Clotting Medicines: Warfarin (Coumadin) Forms: [employer] (Guyanese) Print Language: KOSOVAN - Clinical Impression Clinical Impression: Anticoagulated on Coumadin - Cindiibe Statement The provider has reviewed the documentation as recorded by the Nena Smart Benton Provider Attestation: All medical record entries made by the Nena were at my direction and per sonally dictated by me. I have reviewed the chart and agree that the record accurately reflects my personal performance of the history, physical exam, medical decision making, and the department course for this patient. I have also personally directed, reviewed, and agree with the discharge instructions and disposition.
[2018-08-28 08:18] VITALS: RESP 18
== END 2018-08-28 08:18 | disposition home or self-care (01) ==
LOC: C.ER 06:59
DX: D68.8 Other specified coagulation defects (principal); Z79.01 Long term (current) use of anticoagulants

== ENCOUNTER 2018-12-30 23:04 | Emergency (ER) | payer OTHER ==
[2018-12-30 23:05] VITALS: PULSE 73; BMI 35.3
[2018-12-30 23:13] VITALS: RESP 18; O2SAT 98
[2018-12-31 00:02] LABS: BASO % 0.6 % (0.0-2.0); EOS # 0.2 K/uL (0.0-0.7); LYMPH # 3.5 K/uL (1.0-4.3); LYMPH % 42.7 % (20.0-40.0); MEAN CELL VOLUME 90.4 fL (81.0-99.0); MEAN CORPUSCULAR HEMOGLOBIN 29.9 pg (27.0-31.0); MEAN CORPUSCULAR HGB CONC 33.1 g/dL (33.0-37.0); MEAN PLATELET VOLUME 10.8 fL (7.2-11.7); MONO # 0.8 K/uL (0.0-0.8); MONO % 9.1 % (0.0-10.0); NEUT # 3.8 K/uL (1.8-7.0); NEUT % 45.6 % (50.0-75.0); RBC 5.02 Mil/uL (3.80-5.20); WHITE BLOOD COUNT 8.3 K/uL (4.8-10.8)
[2018-12-31 00:12] LABS: INR 2.3; PROTHROMBIN TIME 25.7 SECONDS (9.7-12.2)
[2018-12-31 00:14] LABS: ALB/GLOB RATIO 1.5 (1.0-2.1); ALBUMIN 4.7 g/dL (3.5-5.0); ALT/SGPT 39 U/L (9-52); AST/SGOT 37 U/L (14-36); BLOOD UREA NITROGEN 16 mg/dL (7-17); CALCIUM 9.3 mg/dl (8.6-10.4); GFR NON-AFRICAN AMERICAN > 60
[2018-12-31 00:25] LABS: B-TYPE NATRIURETIC PEPTIDE 46.8 pg/mL (0-450)
--- NOTE | 2018-12-31 00:34 | C.PDOC ---
History Of Present Illness 48 y/o female presents to the ED complaining she noticed bright red blood in her stool tonight. Patient takes Coumadin s/p mechanical valve replacement. She denies hx of GI bleed. Denies having any abdominal pain or other associated symptoms. Time Seen by Provider: 12/30/18 23:36 Chief Complaint (Nursing): GI Problem History Per: Patient History/Exam Limitations: no limitations Onset/Duration Of Symptoms: Hrs Current Symptoms Are (Timing): Still Present Past Medical History Reviewed: Historical Data, Nursing Documentation, Vital Signs Vital Signs: Last Vital Signs Temp 98.6 F 12/30/18 23:08 Pulse 85 12/30/18 23:08 Resp 18 12/30/18 23:08 BP 150/79 12/30/18 23:08 Pulse Ox 98 12/30/18 23:08 - Medical History PMH: Anemia, Atrial Fibrillation, Cardia Arrhythmia, CHF, HTN, Hypothyroidism, Malignancy (thyroid), Mitral Valve Prolapse Denies: Chronic Kidney Disease, Sexually Transmitted Disease Surgical History: CABG (quad bypass 2013), Other Surgeries: Valve repair - [facility] Procedures PACKED CELL TRANSFUSION (06/28/15) THORACENTESIS (01/07/15) Family History: States: Unknown Family Hx - Social History Hx Tobacco Use: No Hx Alcohol Use: No Hx Substance Use: No - Immunization History Hx Tetanus Toxoid Vaccination: No Hx Influenza Vaccination: No Hx Pneumococcal Vaccination: Yes Review Of Systems Constitutional: Negative for: Fever, Weakness Cardiovascular: Negative for: Chest Pain, Palpitations Respiratory: Negative for: Shortness of Breath Gastrointestinal: Positive for: Hematochezia. Negative for: Vomiting, Abdominal Pain, Diarrhea Neurological: Negative for: Weakness, Dizziness Physical Exam - Physical Exam Appears: Non-toxic, No Acute Distress Skin: Warm, Dry, No Rash Head: Atraumatic, Normacephalic Eye(s): bilateral: Normal Inspection, PERRL, EOMI Oral Mucosa: Moist Neck: Normal ROM, Supple Chest: Symmetrical Cardiovascular: Rhythm Regular, No Murmur Respiratory: Normal Breath Sounds, No Accessory Muscle Use Gastrointestinal/Abdominal: Soft, No Tenderness, No Distention, No Guarding Rectal: Hemorrhoids (Small external hemorrhoid, nontender, with fresh blood) Back: Normal Inspection Extremity: Bilateral: Atraumatic, Normal ROM Neurological/Psych: Oriented x3 ED Course And Treatment - Laboratory Results Result Diagrams: 12/30/18 23:59 12/30/18 23:59 Lab Results: PT 25.7 SECONDS (9.7-12.2) H 12/30/18 23:59 INR 2.3 12/30/18 23:59 APTT 49 SECONDS (21-34) H 12/30/18 23:59 Troponin I < 0.0120 ng/mL (0.00-0.120) 12/30/18 23:59 NT-Pro-B Natriuret Pep 46.8 pg/mL (0-450) 12/30/18 23:59 Total Bilirubin 0.9 mg/dL (0.2-1.3) 12/30/18 23:59 AST 37 U/L (14-36) H D 12/30/18 23:59 ALT 39 U/L (9-52) 12/30/18 23:59 Alkaline Phosphatase 95 U/L (38-126) 12/30/18 23:59 Total Protein 7.9 g/dL (6.3-8.3) 12/30/18 23:59 Albumin 4.7 g/dL (3.5-5.0) 12/30/18 23:59 Globulin 3.1 gm/dL (2.2-3.9) 12/30/18 23:59 Albumin/Globulin Ratio 1.5 (1.0-2.1) 12/30/18 23:59 Lab Interpretation: Normal (INR 2.3 (theraputic 2-3), occult stool blood +) ECG: Interpreted By Nm ECG Rhythm: Sinus Rhythm ECG Interpretation: Normal Rate From EC O2 Sat by Pulse Oximetry: 98 (RA) Pulse Ox Interpretation: Normal - Radiology CXR: Interpreted by Me CXR Interpretation: Yes: No Acute Disease Progress Note: Labs, EKG, and CXR ordered and reviewed. Medical Decision Making Medical Decision Making: small external hemorroid, non-bleeding now theraputic on coumadin for valvular replacement Disposition Doctor Will See Patient In The: Office Counseled Patient/Family Regarding: Studies Performed, Diagnosis - Disposition Disposition: HOME/ ROUTINE Disposition Time: 00:39 Condition: GOOD Forms: [facility] (Russian) - Clinical Impression Clinical Impression: External bleeding hemorrhoids - Scribe Statement The provider has reviewed the documentation as recorded by the Nena Cloud Provider Attestation: All medical record entries made by the Nena were at my direction and personally dictated by me. I have reviewed the chart and agree that the record accurately reflects my personal performance of the history, physical exam, medical decision making, and the department course for this patient. I have also personally directed, reviewed, and agree with the discharge instructions and disposition.
[2018-12-31 00:47] VITALS: BP 144/72; PULSE 88; TEMP 98.4
--- NOTE | 2018-12-31 08:59 | RAD ---
Date of service: 12/30/2018 PROCEDURE: CHEST RADIOGRAPH, 1 VIEW HISTORY: SOB COMPARISON: 03/19/2018. FINDINGS: LUNGS: The lungs are well inflated. There is mild pulmonary venous congestion. PLEURA: No pneumothorax or pleural effusion. CARDIOVASCULAR: Mild cardiomegaly and prominent central vasculature. Status post median sternotomy and prosthetic valve replacement. No aortic atherosclerotic calcifications present. OSSEOUS STRUCTURES: Within normal limits for the patient's age. VISUALIZED UPPER ABDOMEN: Normal. OTHER FINDINGS: None. IMPRESSION: No acute findings.
--- NOTE | 2018-12-31 16:47 | CARD ---
APPROVED REPORT Date of service: 12/30/2018 EKG Measurement Heart [id number] <Conclusion> Normal sinus rhythm Possible Left atrial enlargement Right bundle branch block Cannot rule out Inferior infarct, age undetermined Abnormal ECG
== END 2018-12-31 00:48 | disposition home or self-care (01) ==
LOC: C.ER 23:04
DX: K64.4 Residual hemorrhoidal skin tags (principal)
CPT/HCPCS: 71045; 80053; 83880; 84484; 85025; 85610; 85730; 93005; 99284; G0328